=== PATIENT | female | born 1970 | race American Indian/Alaskan Native ===

== ENCOUNTER 2016-10-03 12:15 | Emergency (ER) | payer MEDICAID ==
[2016-10-03 12:41] VITALS: BP 114/73
--- NOTE | 2016-10-03 13:04 | Emergency Department Report ---
ED Female HPI - General Chief complaint: Urogenital-Female Stated complaint: PAINFUL URINATION Time Seen by Provider: 10/03/16 13:02 Source: patient Mode of arrival: Ambulatory Limitations: No Limitations - History of Present Illness MD Complaint: dysuria -: Gradual, days(s) (4) - Related Data Previous Rx's Medication Instructions Recorded Last Taken Type Phenazopyridine [Pyridium] 200 mg PO BID #12 tab 10/03/16 Unknown Rx Sulfamethoxazole/Trimethoprim 1 each PO BID #10 tablet 10/03/16 Unknown Rx [Bactrim DS TAB] Allergies Allergy/AdvReac Type Severity Reaction Status Date / Time No Known Allergies Allergy Unverified 10/03/16 12:37 ED Review of Systems ROS: Stated complaint: PAINFUL URINATION Other details as noted in HPI Constitutional: denies: chills, fever, malaise ENT: denies: throat pain Respiratory: denies: cough, orthopnea Gastrointestinal: abdominal pain (suprapubic). denies: nausea, vomiting, diarrhea Genitourinary: urgency, dysuria, frequency. denies: hematuria, discharge Musculoskeletal: back pain Skin: denies: rash, lesions Neurological: denies: headache, paresthesias ED Past Medical Hx - Past Medical History Previous Medical History?: Yes Hx of Cancer: Yes (left breast) Additional medical history: Vaginal delivery x 3 - Surgical History Past Surgical History?: Yes Hx Breast Surgery: Yes (Left breast lumpectomy) - Social History Smoking Status: Never Smoker Substance Use Type: Alcohol, Non Opiate Pain - Medications Home Medications: Home Medications Medication Instructions Recorded Confirmed Last Taken Type Phenazopyridine [Pyridium] 200 mg PO BID #12 tab 10/03/16 Unknown Rx Sulfamethoxazole/Trimethoprim 1 each PO BID #10 tablet 10/03/16 Unknown Rx [Bactrim DS TAB] ED Physical Exam - General Limitations: No Limitations General appearance: alert, in no apparent distress - Eye Eye exam: Present: normal appearance, PERRL, EOMI Pupils: Present: normal accommodation - ENT ENT exam: Present: mucous membranes moist - Neck Neck exam: Present: normal inspection, lymphadenopathy. Absent: tenderness, meningismus, full ROM - Respiratory Respiratory exam: Present: normal lung sounds bilaterally. Absent: respiratory distress - Cardiovascular Cardiovascular Exam: Present: regular rate - GI/Abdominal GI/Abdominal exam: Present: soft, tenderness (mild suprapubic tenderness). Absent: distended, guarding, rebound, rigid - Back Exam Back exam: Present: full ROM. Absent: CVA tenderness (R), CVA tenderness (L) - Neurological Exam Neurological exam: Present: alert, oriented X3, normal gait - Skin Skin exam: Present: warm, dry, intact, normal color. Absent: rash ED Course Vital Signs 10/03/16 12:37 Temperature 98.2 F Pulse Rate 82 Respiratory 20 Rate Blood Pressure 114/73 O2 Sat by Pulse 100 Oximetry Critical care attestation.: If time is entered above; I have spent that time in minutes in the direct care of this critically ill patient, excluding procedure time. ED Disposition Clinical Impression: UTI (urinary tract infection) Disposition: DISCHARGED TO HOME OR SELFCARE Is pt being admited?: No Condition: Stable Instructions: Urinary Tract Infection in Women (ED) Prescriptions: Phenazopyridine [Pyridium] 200 mg PO BID #12 tab Sulfamethoxazole/Trimethoprim [Bactrim DS TAB] 1 each PO BID #10 tablet Referrals: YANE ROMERO MD [Primary Care Provider] - 3-5 Days
[2016-10-03 13:20] LABS: Bacteria,Urine 1+ /HPF (Negative); Bilirubin,Urine NEG (Negative); Blood,Urine SM (Negative); Ketones,Urine NEG (Negative); Leukocyte Esterase,Urine MOD (Negative); Mucus,Urine FEW /HPF; Nitrite,Urine POS (Negative); Protein,Urine <15 mg/dL mg/dL (Negative); Urobilinogen,Urine < 2.0 mg/dL (<2.0)
== END 2016-10-03 13:55 | disposition home or self-care (01) ==
LOC: ED 12:15
DX: N39.0 Urinary tract infection, site not specified (principal); Z85.3 Personal history of malignant neoplasm of breast
CPT/HCPCS: 81001; 81025; 87076; 87086; 87186; 99283

== ENCOUNTER 2016-11-05 17:36 | Emergency (ER) | payer MEDICAID ==
[2016-11-05 18:32] LABS: Basophils % (Auto) 0.8 % (0.0-1.8); Eosinophils % (Auto) 0.7 % (0.0-4.3); Hematocrit 34.1 % (30.3-42.9); Hemoglobin 11.3 gm/dl (10.1-14.3); Mean Corpuscular HGB Conc 33 % (30-34); Mean Corpuscular Hemoglobin 29 pg (28-32); Mean Corpuscular Volume 88 fl (79-97); Platelet Count 208 K/mm3 (140-440); Red Blood Count 3.87 M/mm3 (3.65-5.03); Red Cell Distribution Width 13.8 % (13.2-15.2); White Blood Count 4.1 K/mm3 (4.5-11.0)
[2016-11-05 18:54] LABS: Alanine Aminotransferase 18 units/L (7-56); Albumin 4.7 g/dL (3.9-5); Albumin/Globulin Ratio 1.5 %; Alkaline Phosphatase 50 units/L (35-129); Anion Gap 17 mmol/L; BUN/Creatinine Ratio 12.22; Blood Urea Nitrogen 11 mg/dL (7-17); Calcium 10.2 mg/dL (8.4-10.2); Carbon Dioxide 27 mmol/L (22-30); Chloride 102.4 mmol/L (98-107); Glucose 94 mg/dL (65-100); Lipase 39 units/L (13-60); Potassium 3.7 mmol/L (3.6-5.0); Sodium 143 mmol/L (137-145); Total Protein 7.9 g/dL (6.3-8.2)
[2016-11-05 19:30] LABS: Bilirubin,Urine NEG (Negative); Blood,Urine SM (Negative); Ketones,Urine NEG (Negative); Leukocyte Esterase,Urine NEG (Negative); Mucus,Urine FEW /HPF; Nitrite,Urine NEG (Negative); Protein,Urine <15 mg/dL mg/dL (Negative); Urobilinogen,Urine < 2.0 mg/dL (<2.0)
[2016-11-06] MEDS ORDERED: MORPHINE IV ONE (00:42)
[2016-11-06] MEDS ORDERED: NACL 0.9% 1000 ML 1,000 ML IV ONE (00:42)
[2016-11-06] MEDS ORDERED: ZOFRAN IV ONE (00:42)
--- NOTE | 2016-11-06 01:02 | Emergency Department Report ---
HPI - General Chief Complaint: Abdominal Pain Time Seen by Provider: 11/06/16 00:35 - HPI HPI: This is a 46-year-old Afro-[place] female presents to the emergency department , driven in by her daughter, with complaint of a 24-hour history of upper abdominal pain and some bilateral mid to lower back discomfort. It is associated with some nausea without vomiting. She denies any diarrhea, fever, vaginal bleeding, discharge, chest pain or shortness of breath. She took some improvement for her discomfort without much relief. The pain in the abdomen is a dull pain. There are no aggravating or alleviating factors. Primary care doctor is a Dr. Vaughn but she has not seen them regarding her symptoms. No recent travel or sick contacts at home. She denies any problems with bowel or bladder, numbness or paresthesias or any neurological deficits. ED Past Medical Hx - Past Medical History Hx of Cancer: Yes (Breast) Additional medical history: Vaginal delivery x 3 - Surgical History Hx Breast Surgery: Yes (Left breast lumpectomy) - Social History Smoking Status: Never Smoker Substance Use Type: Alcohol - Medications Home Medications: Home Medications Medication Instructions Recorded Confirmed Last Taken Type Phenazopyridine [Pyridium] 200 mg PO BID #12 tab 10/03/16 Unknown Rx Sulfamethoxazole/Trimethoprim 1 each PO BID #10 tablet 10/03/16 Unknown Rx [Bactrim DS TAB] HYDROcodone/APAP 5-325 [[place] 1 each PO Q6HR PRN #10 tablet 11/06/16 Unknown Rx 5/325] Ondansetron [Zofran Odt] 4 mg PO Q8H PRN #10 tab.rapdis 11/06/16 Unknown Rx ED Review of Systems ROS: Stated complaint: ABD PAIN/BACK PAIN Other details as noted in HPI Comment: All other systems reviewed and negative Constitutional: denies: chills, fever Eyes: denies: eye pain, eye discharge, vision change ENT: denies: ear pain, throat pain Respiratory: denies: cough, shortness of breath, wheezing Cardiovascular: denies: chest pain, palpitations Gastrointestinal: abdominal pain, nausea. denies: vomiting Genitourinary: denies: urgency, dysuria, discharge Musculoskeletal: back pain. denies: arthralgia Skin: denies: rash, lesions Neurological: denies: headache, numbness, paresthesias Physical Exam - Physical Exam Vital Signs: Vital Signs 11/05/16 11/05/16 18:16 22:51 Temperature 98.0 F Pulse Rate 63 58 L Respiratory 16 12 Rate Blood Pressure 116/80 110/78 O2 Sat by Pulse 100 100 Oximetry Physical Exam: GENERAL: The patient is well-developed well-nourished. HEENT: Normocephalic. Atraumatic. Extraocular motions are intact. Patient has moist mucous membranes. Pupils equal reactive to light bilaterally. NECK: Supple. Trachea is midline. CHEST/LUNGS: Clear to auscultation. There is no respiratory distress noted. HEART/CARDIOVASCULAR: Regular. There is no tachycardia. There is no gallop rub or murmur. ABDOMEN: Abdomen is soft. There is mild left-sided abdominal tenderness to palpation. No guarding or rebound tenderness. No peritoneal signs. Patient has normal bowel sounds. There is no abdominal distention. SKIN: Skin is warm and dry. NEURO: The patient is awake, alert, and oriented. The patient is cooperative. The patient has no focal neurologic deficits. The patient has normal speech. MUSCULOSKELETAL: There is no tenderness or deformity. There is no limitation range of motion. There is no evidence of acute injury. Muscle strength 5 out of 5 for upper and lower extremities including EHL bilaterally. BACK: No midline thoracic or lumbar tenderness to palpation or deformity. She has some reproducible bilateral paraspinal tenderness to the lower thoracic and lumbar regions of the back. ED Course Vital Signs 11/05/16 11/05/16 18:16 22:51 Temperature 98.0 F Pulse Rate 63 58 L Respiratory 16 12 Rate Blood Pressure 116/80 110/78 O2 Sat by Pulse 100 100 Oximetry ED Medical Decision Making - Lab Data Result diagrams: 11/05/16 18:23 11/05/16 18:23 - Radiology Data Radiology results: image reviewed interpreted by me: Abdominal x-ray shows some nonspecific nonobstructive bowel gas and some stool throughout the colon. - Medical Decision Making 46-year-old female presents with some abdominal discomfort, nausea without vomiting and some back pain since night. Her vital signs were stable throughout her ED course including being afebrile. Labs are unremarkable without leukocytosis, electrolyte abnormalities, renal insufficiency, glucose abnormalities. She has normal belly labs including lipase, LFTs and bilirubin. Urinalysis does not show any urinary tract infection and the patient is not . An abdominal x-ray was done that did not show any signs of any obstruction or any acute process. She was given a dose of Zofran, IV fluid and one dose of pain medication. Upon reevaluation she says she is feeling much better. The patient will be discharged home to follow-up with her primary care doctor but understands to return to the emergency department with any worsening of her symptoms or any acute distress. - Differential Diagnosis gastritis, , colitis, diverticulitis, pancreatitis, cholelithiasis Critical Care Time: No Critical care attestation.: If time is entered above; I have spent that time in minutes in the direct care of this critically ill patient, excluding procedure time. ED Disposition Clinical Impression: Nausea Abdominal pain Qualifiers: Abdominal location: upper abdomen, unspecified Qualified Code(s): R10.10 - Upper abdominal pain, unspecified Back pain Qualifiers: Back pain location: back pain in unspecified location Chronicity: unspecified Back pain laterality: bilateral Qualified Code(s): M54.9 - Dorsalgia, unspecified Disposition: DISCHARGED TO HOME OR SELFCARE Is pt being admited?: No Condition: Stable Instructions: Abdominal Pain (ED), Back Pain (ED) Additional Instructions: Please follow-up with your primary care doctor in the next few days. Return to the emergency department with any worsening of your symptoms or any acute distress. You've been prescribed a medication that is sedating. Therefore this medication cannot be mixed with alcohol, or taken prior to driving, working, or being responsible for children. Prescriptions: HYDROcodone/APAP 5-325 [[place] 5/325] 1 each PO Q6HR PRN #10 tablet PRN Reason: Pain Ondansetron [Zofran Odt] 4 mg PO Q8H PRN #10 tab.rapdis PRN Reason: Nausea Referrals: PRIMARY CARE, [Primary Care Provider] - [facility] Time of Disposition: 02:07
[2016-11-06 01:07] VITALS: BP 120/80
--- NOTE | 2016-11-06 09:55 | XRay Report ---
ABDOMINAL SERIES THREE VIEWS: 11/05/16 17:36:00 CLINICAL: Abdominal pain. FINDINGS: Supine and upright views demonstrate a normal bowel gas pattern with a large volume of stool in the colon. No distended small bowel and no air-fluid levels. No pneumoperitoneum. No mass or suspicious calcifications. The bones and soft tissues are normal. IMPRESSION: Negative abdomen with abundant stool.
== END 2016-11-06 02:28 | disposition home or self-care (01) ==
LOC: ED 17:36
DX: R10.10 Upper abdominal pain, unspecified (principal); M54.5 Low back pain; R11.0 Nausea; Z85.3 Personal history of malignant neoplasm of breast; Z98.890 Other specified postprocedural states
CPT/HCPCS: 36415; 74020; 80053; 81001; 81025; 83690; 85025; 96361; 96374; 96375; 99284; J2270; J2405; J7030

== ENCOUNTER 2017-01-05 11:53 | Emergency (ER) | payer MEDICAID ==
[2017-01-05 12:01] VITALS: BP 112/81
--- NOTE | 2017-01-05 12:41 | Emergency Department Report ---
HPI - General Chief Complaint: Headache Time Seen by Provider: 01/05/17 12:24 - HPI HPI: Patient is a 46-year-old female presents to the ED complaining of frontal and orbital, throbbing, aching, 7 out of 10 intensity headache for the past 2 days. Patient states she has some nasal congestion but denies coughing/running runny nose/fever. She also states no menstrual periods for the past 1-1/2 years years. She denies chills, abdominal pain, shortness of breath, chest pain, blurred vision, dizziness ED Past Medical Hx - Past Medical History Hx of Cancer: Yes (LEFT BREAST) Additional medical history: Vaginal delivery x 3 - Surgical History Hx Breast Surgery: Yes (Left breast lumpectomy) Additional Surgical History: TUBAL LIGATION - Social History Smoking Status: Never Smoker Substance Use Type: Alcohol - Medications Home Medications: Home Medications Medication Instructions Recorded Confirmed Last Taken Type Amoxicillin/K Clav Tab [Augmentin 1 each PO BID #20 tablet 01/05/17 Unknown Rx 875MG TAB] Ibuprofen [Motrin] 800 mg PO Q8HR PRN #30 tablet 01/05/17 Unknown Rx Pseudoephedrine ER [Sudafed 12 Hr] 120 mg PO BID #20 tablet.er 01/05/17 Unknown Rx ED Review of Systems ROS: Stated complaint: HEADACHE,NAUSEA Other details as noted in HPI Constitutional: denies: chills, fever Eyes: denies: eye pain, eye discharge, vision change ENT: congestion. denies: ear pain, throat pain, dental pain, hearing loss Respiratory: denies: cough, shortness of breath, wheezing Cardiovascular: denies: chest pain, palpitations Endocrine: no symptoms reported Gastrointestinal: denies: abdominal pain, nausea, diarrhea Genitourinary: denies: urgency, dysuria, frequency, hematuria, discharge Musculoskeletal: denies: back pain, joint swelling, arthralgia Skin: denies: rash, lesions Neurological: headache (frontal/orbital). denies: weakness, paresthesias Psychiatric: denies: anxiety, depression Hematological/Lymphatic: denies: easy bleeding, easy bruising Physical Exam - Physical Exam Vital Signs: Vital Signs 01/05/17 11:58 Temperature 97.9 F Pulse Rate 77 Respiratory 17 Rate Blood Pressure 112/81 O2 Sat by Pulse 100 Oximetry Physical Exam: GENERAL: Alert and oriented x3, no apparent distress, Normal Gait, atraumatic. HEAD: Head is normocephalic and a-traumatic. EYES: Extra ocular muscles are intact. Pupils are equal, round, and reactive to light and accommodation. Sclerae white, no erythema, no edema, nontender to palpation. EARS: symetrical, atraumatic, non tender, ear canal clear and moderate cerumen, tympanic membrance non inflamed. Serous fluid behind tympanic membrane bilaterally .gross auditory nml bilaterally. NOSE: Nose symetrical, Nontender,Nares appeared normal. MOUTH:Mouth is well hydrated and without lesions. Tonsils nonerythematous or swollen, Uvula midline, Tongue not elevated. Mucous membranes are moist. Posterior pharynx clear, no exudate or lesions. Patent airways. NECK: Supple. Non edematous, No lymphadenopathy or thyromegaly. LUNGS: Symetrical with respiration, No wheezing, no rales or crackles, CTAB. HEART: S1, S2 present, regular rate and rhythm without murmur, no rubs, no gallops. Non tender to palpation NEUROLOGIC: The patient is cooperative with no focal neurologic deficits. Cranial nerves II through XII are grossly intact. Normal speech. PSYCHIATRIC: Mood is congruent with affect, denies suicidal or homicidal ideations. SKIN: Warm and dry, No lesions, No ulceration or induration present. ED Course Vital Signs 01/05/17 11:58 Temperature 97.9 F Pulse Rate 77 Respiratory 17 Rate Blood Pressure 112/81 O2 Sat by Pulse 100 Oximetry ED Medical Decision Making - Medical Decision Making 46-year-old female presents to ED with sinusitis infection ED course: Patient received Augmentin and Sudafed and ED Discussed the patient to follow-up with her primary care physician. Discussed with patient to take all medication as prescribed. Discussed if worsening symptoms or new symptoms arise to return to ED Vital signs are stable patient is in no acute distress She is alert and oriented 3 states to understand instructions given Critical care attestation.: If time is entered above; I have spent that time in minutes in the direct care of this critically ill patient, excluding procedure time. ED Disposition Clinical Impression: Sinusitis chronic, frontal Disposition: DC-01 TO HOME OR SELFCARE Is pt being admited?: No Does the pt Need Aspirin: No Condition: Stable Instructions: Sinusitis (ED) Prescriptions: Amoxicillin/K Clav Tab [Augmentin 875MG TAB] 1 each PO BID #20 tablet Ibuprofen [Motrin] 800 mg PO Q8HR PRN #30 tablet PRN Reason: Pain Pseudoephedrine ER [Sudafed 12 Hr] 120 mg PO BID #20 tablet.er Referrals: [facility] [Outside] - 3-[address] [facility] [place] [Outside] - 3-5 Days Forms: Work/School Release Form(ED) Time of Disposition: 13:44
[2017-01-05] MEDS ORDERED: AUGMENTIN 875 MG PO ONE (12:52)
[2017-01-05] MEDS ORDERED: SUDAFED 12 HR PO ONE (12:53)
== END 2017-01-05 14:11 | disposition home or self-care (01) ==
LOC: ED 11:53
DX: J32.1 Chronic frontal sinusitis (principal); Z85.3 Personal history of malignant neoplasm of breast
CPT/HCPCS: 99282

== ENCOUNTER 2017-10-15 13:04 | Emergency (ER) | payer MEDICAID ==
[2017-10-15] MEDS ORDERED: BENADRYL PO ONE (15:16)
[2017-10-15] MEDS ORDERED: REGLAN IV ONE (15:16)
--- NOTE | 2017-10-15 15:19 | Emergency Department Report ---
ED Headache HPI - General Chief Complaint: Headache Stated Complaint: MIGRAINE HEADACHE Time Seen by Provider: 10/15/17 15:12 Source: patient Exam Limitations: no limitations - History of Present Illness Initial Comments: This is a 47 y.o. female that presents with headache and nausea for 2 days. Patient reports pain is worse with bending and light. When headache initially started she had nausea and vomiting. States vomiting has subsided but she is still feeling very nauseous. She is taking tylenol and ibuprofen for pain with no improvement of symptoms. She is unable to focus or complete daily duties. States history of migraines but haven't had one in 2-3 years. This one came on without a warning. Denies aura, chest pain, fever, recent head injury/fall. Timing/Duration: constant (2 days), episodic Quality: severe, constant, pressure, throbbing Head Injury Location: frontal Recent Head Trauma: occasional headaches Modifying Factors: improves with: exposure to light, movement, rest (improves with sleep) Associated Symptoms: nausea/vomiting, nasal congestion. denies: confusion, fatigue, facial pain, fever/chills, flushing, loss of consciousness, numbness in legs/feet, rash, seizures, sinus infection, stiff neck, vision changes, weakness Allergies/Adverse Reactions: Allergies No Known Allergies Allergy (Verified 01/05/17 11:55) Home Medications: Ambulatory Orders Amoxicillin/K Clav Tab [Augmentin 875MG TAB] 1 each PO BID #20 tablet 01/05/17 Ibuprofen [Motrin] 800 mg PO Q8HR PRN #30 tablet 01/05/17 Pseudoephedrine ER [Sudafed 12 Hr] 120 mg PO BID #20 tablet.er 01/05/17 Ibuprofen 800 mg PO Q6H PRN #20 tablet 10/15/17 ED Review of Systems ROS: Stated complaint: MIGRAINE HEADACHE Other details as noted in HPI Constitutional: denies: chills, fever ENT: congestion. denies: ear pain, throat pain, dental pain Respiratory: denies: cough, shortness of breath, wheezing Cardiovascular: denies: chest pain, palpitations, edema, syncope Gastrointestinal: nausea, vomiting. denies: abdominal pain, diarrhea Neurological: headache. denies: weakness, numbness, paresthesias Psychiatric: denies: anxiety, depression ED Past Medical Hx - Past Medical History Hx Headaches / Migraines: Yes Additional medical history: Vaginal delivery x 3 - Surgical History Hx Breast Surgery: Yes (Left breast lumpectomy) Additional Surgical History: TUBAL LIGATION - Social History Smoking Status: Current Every Day Smoker Substance Use Type: None - Medications Home Medications: Home Medications Medication Instructions Recorded Confirmed Last Taken Type Amoxicillin/K Clav Tab [Augmentin 1 each PO BID #20 tablet 01/05/17 Unknown Rx 875MG TAB] Ibuprofen [Motrin] 800 mg PO Q8HR PRN #30 tablet 01/05/17 Unknown Rx Pseudoephedrine ER [Sudafed 12 Hr] 120 mg PO BID #20 tablet.er 01/05/17 Unknown Rx Ibuprofen 800 mg PO Q6H PRN #20 tablet 10/15/17 Unknown Rx ED Physical Exam - General Limitations: No Limitations General appearance: alert, in no apparent distress - ENT ENT exam: Present: normal orophraynx, mucous membranes moist, normal external ear exam, other (Turbinates mildly congested, clear discharge) - Respiratory Respiratory exam: Present: normal lung sounds bilaterally. Absent: respiratory distress, wheezes, rales, rhonchi, stridor, accessory muscle use, decreased breath sounds - Cardiovascular Cardiovascular Exam: Present: regular rate, normal rhythm, normal heart sounds. Absent: systolic murmur, diastolic murmur, rubs, gallop - GI/Abdominal GI/Abdominal exam: Present: soft, normal bowel sounds. Absent: distended, tenderness, guarding, rebound, rigid, organomegaly, mass - Neurological Exam Neurological exam: Present: alert, oriented X3, normal gait - Psychiatric Psychiatric exam: Present: normal affect, normal mood - Skin Skin exam: Present: warm, dry, intact, normal color. Absent: rash ED Course Vital Signs 10/15/17 10/15/17 13:07 16:03 Temperature 97.7 F Pulse Rate 92 H 82 Respiratory 20 Rate Blood Pressure 110/75 124/72 O2 Sat by Pulse 100 100 Oximetry ED Medical Decision Making - Medical Decision Making This is a 47 y.o. female that presents with headache for 3 day. History of migraines. Patient is stable and was examined by me. Signs of distress noted. Given benadryl 12.5 mg IV and reglan 10 mg IV once in ER. Start ibuprofen 800 mg po q6h PRN #20 for migraines. Discussed plan to treat outpatient. No further questions noted by the patient. Discharged home in stable condition. Follow up with PCP in 24-72 hours. Critical care attestation.: If time is entered above; I have spent that time in minutes in the direct care of this critically ill patient, excluding procedure time. ED Disposition Clinical Impression: Migraine Qualifiers: Migraine type: without aura Status migrainosus presence: with status migrainosus Intractability: not intractable Qualified Code(s): G43.001 - Migraine without aura, not intractable, with status migrainosus Disposition: TO HOME OR SELFCARE Is pt being admited?: No Does the pt Need Aspirin: No Condition: Stable Instructions: Acute Headache (ED), Migraine Headache (ED) Additional Instructions: Take medication at start of headache. Minimize caffeine intake. Eat at scheduled times or 3 meals a day with snacks. Follow up with primary care provider in 24-72 hours. Prescriptions: Ibuprofen 800 mg PO Q6H PRN #20 tablet PRN Reason: Pain Referrals: [facility] [Outside] - 3-5 Days [facility] [Outside] - 3-[address] [facility] [Outside] - 3-5 Days Time of Disposition: 17:00 Print Language: MONGOLIAN
[2017-10-15 16:14] VITALS: BP 124/72
== END 2017-10-15 17:14 | disposition home or self-care (01) ==
LOC: ED 13:04
DX: G43.001 Migraine without aura, not intractable, with status migrainosus (principal); F17.200 Nicotine dependence, unspecified, uncomplicated
CPT/HCPCS: 96374; 99283; J2765; Q0163